=== PATIENT | male | born 1955 | race Caucasian/White ===

== ENCOUNTER 2024-10-05 06:13 | Day surgery (SDC) | payer MEDICARE, SELFPAY ==
[2024-10-05] VITALS (19 sets, daily range): BP systolic 142–186; BP diastolic 43–60; PULSE 40–53; RESP 11–24; TEMP 35.9–36.6; O2SAT 93–98; BMI 32.5
--- NOTE | 2024-10-05 06:15 | DI.NM_ITS ---
Exam(s) NM SENTNODE INJ AND SCAN EXAM: NM SENTNODE INJ AND SCAN CLINICAL HISTORY: Hannah Cell Right Thigh,lymph node bx,hannah cell ca,c4A.p. TECHNIQUE: Injected Dose: 1 mCi Tc-99m filtered sulfur colloid Images: 35 minutes COMPARISON: No exams were available for comparison FINDINGS: There is intense uptake seen at the injection site. There are foci of increased radiotracer uptake i n the right inguinal region. A skin surface marker was placed at the site of the lymph known labeled Node 1. IMPRESSION: 1. Lester node uptake in the groin. DATA REPOSITORY:
[2024-10-05] MEDS: Normal Saline Flush 10 ML SYR IV (06:51)
--- NOTE | 2024-10-05 06:53 | W.ANESPRE ---
General Info Date of Service Date Performed: 10/05/24 Height: 5 ft 11 in Weight: 106 kg Body Mass Index (BMI): 32.5 Surgical Procedure: Operation Date: 10/05/24 12:40 Proposed Procedure Side Surgeon p Sentinal Node Biopsy Right Sukhdev Pappas MD s Thigh Brandon Cell Wide Local Excision Right Sukhdev Pappas MD Meds Allergies and Home Medications Allergies Allergy/AdvReac Type Severity Reaction Status Date / Time amoxicillin (From Augmentin) Allergy Skin Rash Verified 10/05/24 06:38 bee venom protein (honey bee) Allergy Anaphylaxis Verified 10/05/24 06:38 sulfamethoxazole (From Allergy Hives Verified 10/05/24 06:38 Bactrim) trimethoprim (From Bactrim) Allergy Hives Verified 10/05/24 06:38 ciprofloxacin AdvReac Skin Rash Verified 10/05/24 06:38 clavulanic acid (From AdvReac Hives Verified 10/05/24 06:38 Augmentin) Home Medication ?Medication ?Instructions ?Recorded acetaminophen 500 mg tablet 500 mg PO Q6H 10/04/24 albuterol sulfate 90 mcg/actuation 2 puff inhalation Q6H PRN 10/04/24 aerosol inhaler amlodipine 5 mg tablet 5 mg PO DAILY 10/04/24 aspirin 81 mg tablet,delayed 81 mg PO DAILY 10/04/24 release carvedilol 3.125 mg tablet 3.125 mg PO BID 10/04/24 cholecalciferol (vitamin D3) 50 50 mcg PO DAILY 10/04/24 mcg (2,000 unit) capsule epinephrine 0.3 mg/0.3 mL 0.3 mg IM ONCE PRN 10/04/24 injection, auto-injector (EpiPen) ezetimibe 10 mg tablet 10 mg PO DAILY 10/04/24 furosemide 20 mg tablet 20 mg PO DAILY 10/04/24 hydroxychloroquine 200 mg tablet 200 mg PO DAILY 10/04/24 losartan 100 mg tablet 100 mg PO DAILY 10/04/24 metformin 500 mg tablet 500 mg PO DAILY 10/04/24 metoprolol succinate 25 mg 25 mg PO DAILY 10/04/24 tablet,extended release 24 hr pantoprazole 40 mg tablet,delayed 40 mg PO DAILY 10/04/24 release (Protonix) rosuvastatin 40 mg tablet (Crestor) 40 mg PO DAILY 10/04/24 triamcinolone acetonide 0.1 % 1 applic topical BID 10/04/24 topical cream prednisone 5 mg tablet mg 10/05/24 Current Visit Medications: Current Medications Generic Name Dose Route Start Last Admin Trade Name Nixon PRN Reason Stop Dose Admin Ringer's Solution 1,000 mls @ 80 mls/hr 10/05/24 06:00 IV 10/05/24 23:59 INFUSION JAEL IV Miscellaneous Supplies 1 each 10/05/24 06:00 Iv Access IV 10/05/24 23:59 DIRECTED JAEL Sodium Chloride 0 ml 10/05/24 06:00 10/05/24 06:51 Normal Saline Flush 10 Ml Syr IV 10/05/24 23:59 10 ml PRN PRN Administration Sodium Chloride 0 ml 10/05/24 06:00 Normal Saline 10 Ml Vial IJ 10/05/24 23:59 DIRECTED PRN Sterile Water 0 ml 10/05/24 06:00 Water,Injection,Sterile 10 Ml Vial IJ 10/05/24 23:59 DIRECTED PRN PFSH Medical History Medical History EVARISTO (obstructive sleep apnea) Amyloidosis Dysphagia Cerebral hemorrhage Microhemorrhage on MRI done for memory loss Chronic prostatitis SI (sacroiliac) joint dysfunction Testosterone deficiency Rotator cuff tear Venous insufficiency Osteoarthritis Hx of myocardial infarction per denies CHF (congestive heart failure) Diabetes Meniscal injury GERD (gastroesophageal reflux disease) Hypogonadism in male Obesity Hyperlipidemia Hypertension PMR (polymyalgia rheumatica) Bladder cancer Surgical History Surgical History H/O nasal septoplasty turbinate reduction 08/2024 Hx of colectomy Hx of cardiac catheterization Hx of CABG Hx of right inguinal hernia repair FH: total knee replacement (~2015) S/P AVR (~2020) 08/2020 [facility] [place] Tobacco Smoking/Tobacco Use Status: Former Tobacco Use Passive smoking exposure: No Alcohol Alcohol Intake: current Alcohol intake frequency: holidays/special occasions only Substance Use Substance use: Never Substance use type: does not use Vital Signs and Lab Results Vital Signs Most Recent Vital Signs in EMR: Most Recent Vital Signs Temp Pulse Resp BP Pulse Ox 36.4 C L 44 L 18 142/55 H 98 10/05/24 06:20 10/05/24 06:20 10/05/24 06:20 10/05/24 06:20 10/05/24 06:20 Lab Results Blood Type / Crossmatch: No Data to Display Complete Blood Count: No Data to Display Complete Metabolic Panel: No Data to Display Liver Function Panel: No Data to Display Coagulation Panel: No Data to Display Cardiac Panel: No Data to Display Arterial Blood Gas: No Data to Display Venous Blood Gas: No Data to Display Pancreas Panel: No Data to Display Thyroid Panel: No Data to Display Infectious Disease: No Data to Display Blood Cultures: No Data to Display Toxicology Panel: No Data to Display Anesthesia Assessment and Plan Anesthesia History Personal History: No History of Anesthesia Complications Family History: No Family History of Anesthesia Complications Exercise Tolerance Exercise Tolerance: Metabolic Equivalents>4 Cardiac & Pulmonary Exam Cardiac Exam: Normal S1/S2 Heart Sounds and Heart Murmur Present Pulmonary Exam: Clear Bilateral Breath Sounds Implantable Cardiac Device Does patient have a Pacemaker or an ICD?: No Airway Exam Known Difficult Airway: No Mallampati Class: 3 Mouth Opening: Normal (> 3cm) Thyromental Distance: Less than 3 cm Neck Range of Motion: Limited ROM Neck Circumference: Normal Teeth Condition: Normal Dentition ASA Classification ASA Score: ASA 3 Emergency Case?: No NPO Status NPO Status: NPO Clears >2 hours, Solids >8 hours Anesthesia Plan Resuscitation Status: Full Code Anesthesia Technique: General Anesthesia Airway Planned: LMA Monitors Used: Standard Monitors Preoperative Comments:: 68 yo male for thigh excision. Sig PMHx: HTN (amlodipine, carvedilol, metoprolol), CAD s/p AVR/CABG 2020, EVARISTO, GERD (well controlled), DM2 (ezetimibe, metformin), lateral fem neuropathy, PMR (prednisone 5 mg daily) ECHO: LVEF 81%, no WMA. bioprosthetic valve without stenosis and gradient of 22 mmhg. mitral calcification without stenosis. Previous Anes: - [facility] [place]/septoplasty, LMA 5, fent/prop, no issues. - [facility] [place]/CABG, mac 4 grade 1, no issues. Has been doing well since his CABG, has fair exercise tolerate.
[2024-10-05] MEDS: Lactated Ringers 1,000 ML 80 ML IV (10:51)
--- NOTE | 2024-10-05 11:48 | W.SURGCON ---
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 NCCN guidelines recommend sentinel lymph node biopsy be performed at the same time as a re-excision with larger (1-2 cm) margins. Lab work as well as extent of disease imaging (PET) has been ordered for him already. That will be done in the next couple of weeks at [facility] [place]. He will get an outpatient radiation oncology referral. Overall plan: Radiotracer injection for lymphoscintigraphy and lymph node mapping Re? excision with large margins and with sentinel node biopsy History of Present Illness Narrative: Romero is a 68-year-old man who had a large Hannah cell tumor removed from his right thigh a couple weeks ago. Because of the diagnosis, he needs re? excision, with larger margins and a sentinel lymph node biopsy. His prior excision site is healing up very nicely. PFSH All Active Problems (Updated 10/05/24 @ 11:49 by Sukhdev Pappas MD) Hannah cell carcinoma (Acute) Medical History (Updated 10/05/24 @ 11:49 by Sukhdev Pappas MD) EVARISTO (obstructive sleep apnea) Amyloidosis Dysphagia Cerebral hemorrhage Microhemorrhage on MRI done for memory loss Chronic prostatitis SI (sacroiliac) joint dysfunction Testosterone deficiency Rotator cuff tear Venous insufficiency Osteoarthritis Hx of myocardial infarction per denies CHF (congestive heart failure) Diabetes Meniscal injury GERD (gastroesophageal reflux disease) Hypogonadism in male Obesity Hyperlipidemia Hypertension PMR (polymyalgia rheumatica) Bladder cancer Surgical History H/O nasal septoplasty turbinate reduction 08/2024 Hx of colectomy Hx of cardiac catheterization Hx of CABG Hx of right inguinal hernia repair FH: total knee replacement (~2015) S/P AVR (~2020) 08/2020 [facility] [place] Social History Smoking/Tobacco Use Status: Former Tobacco Use Quit Date: 07/05/99 Smoking risk assessment performed?: Yes Alcohol Intake: current Alcohol Intake frequency: holidays/special occasions only Drug use: Never Substance use type: does not use Housing: house Additional Social history: [employer] Exam Narrative Exam Narrative: Gen: Non-toxic, comfortable and interactive Neuro: Alert and oriented x3 Psych: Good mood and affect. Good insight and understanding into condition. Chest: Non-labored breathing, no wheezing, no visible shortness of breath. Heart: Regular Right thigh: Nicely?healing surgical incision site. Sutures are still intact Results Last Vital Signs Temp 97.5 F L 10/05/24 06:20 Pulse 44 L 10/05/24 06:20 Resp 18 10/05/24 06:20 BP 142/55 H 10/05/24 06:20 Pulse Ox 98 10/05/24 06:20
--- NOTE | 2024-10-05 11:57 | W.PM.DSUDISC ---
Date of service: 10/05/24 Discharge Plan Disposition Patient Disposition: Home Condition: Good Discharge Details Attending Provider: Sukhdev Pappas Primary Care Provider: Mika Bianchi Home Meds and New Rx's Prescriptions: No Action furosemide 20 mg tablet 20 mg PO DAILY metformin 500 mg tablet 500 mg PO DAILY pantoprazole [Protonix] 40 mg tablet,delayed release (DR/EC) 40 mg PO DAILY amlodipine 5 mg tablet 5 mg PO DAILY Rx Instructions: take 2 tabs once a day hydroxychloroquine 200 mg tablet 200 mg PO DAILY Patient Comments: not taking anymore ezetimibe 10 mg tablet 10 mg PO DAILY carvedilol 3.125 mg tablet 3.125 mg PO BID Rx Instructions: must administer with a meal/food triamcinolone acetonide 0.1 % cream 1 applic topical BID rosuvastatin [Crestor] 40 mg tablet 40 mg PO DAILY albuterol sulfate 90 mcg/actuation HFA aerosol inhaler 2 puff inhalation Q6H PRN losartan 100 mg tablet 100 mg PO DAILY aspirin 81 mg tablet,delayed release (DR/EC) 81 mg PO DAILY cholecalciferol (vitamin D3) 50 mcg (2,000 unit) capsule 50 mcg PO DAILY acetaminophen 500 mg tablet 500 mg PO Q6H epinephrine [EpiPen] 0.3 mg/0.3 mL auto-injector 0.3 mg IM ONCE PRN Rx Instructions: as a single dose; may repeat once metoprolol succinate 25 mg tablet extended release 24 hr 25 mg PO DAILY prednisone 5 mg tablet Discharge Instructions Additional Instructions: FINDINGS: Everything went well. The lymph node was found without any problem. ACTIVITY: As tolerated. Nothing strenuous for a couple of weeks. DIET: As tolerated. MEDICATIONS: Take and resume any and all of your usual home medications. INCISIONS: The groin incision does not need to be covered. There is glue on it. It can be wet in a shower. No tub bathing for at least a week. The leg incision should be covered for the next 3 days. Change the dressing once a day after you shower. Put bacitracin over top of that as well. After 3 days, it does not need to be covered anymore. You can use an Duong bandage to keep the dressing intact. FOLLOW-up: Schedule follow-up visit in the surgery office to be seen in a couple of weeks and go over everything. Stand Alone Forms: Anesthesia Discharge Inst., Jamey Robledo ([facility]) Referrals: Sukhdev Pappas MD [ [facility] STAFF PHYSICIAN] - Activity:: Activity as Tolerated Diet:: As Tolerated Discharge Orders Discharge Orders: Discharge Order (Routine); Ordered 10/05/24 Ordered By: Sukhdev Pappas DS: Diagnosis Discharge Diagnosis (1) [place] cell carcinoma: Status: Acute
--- NOTE | 2024-10-05 12:38 | LYM_PTH ---
PATIENT: Romero Christian LOC: [facility] U#:[id number] AGE/SX: 68/M ROOM: RE10/05/[address]: Sukhdev Pappas : 1955 BED: DIS: 10/05/2024 SPEC #: [id number] RECD: 10/06/24 12:55 STATUS: JASPREET RE #: [id number] AASHISH: 10/05/24 12:[address]: Sukhdev Pappas DEPT: Surgical Specimen RECD BY: Beth Ortiz ENTERED: 10/06/24 12:58 SP TYPE: LYM OTHR DR: Mika Bianchi Tissues: 1 - SKIN EXCISION WIDE 2 - LYMPH NODE RESECTION 3 - LYMPH NODE RESECTION 4 - LYMPH NODE RESECTION 5 - SKIN BIOPSY(SHAVE/PUNCH) Procedures: GROSS AND MICRO LEVEL 5 GROSS AND MICRO LEVEL 3 SKIN LEVEL 4 Comments: [id number] (SPECIMENS RADIOACTIVE)
[2024-10-05] MEDS: Bupivacaine 0.25% Pres-Free 30 ML VIAL (13:26)
[2024-10-05] MEDS: Bacitracin 30 GM TUBE (13:26)
--- NOTE | 2024-10-05 13:36 | ROE_ITS ---
Operative Note Operative Note Refer to Anesthesia Record Procedure Description: Procedures performed: 1. Radical re-excision of thigh Hannah Cell Carcinoma (Less than 5cm) 2. Right inguinal lymph node biopsies 3. Excisional biopsy of R groin cutaneous skin lesion (~2mm) Location: Patient's right thigh Indication: Biopsy-proven Merckel Cell Carcinoma - staging and 1+cm margins required. Specimens: 1) Right Thigh Re-Excision with 1-2cm margins Merckel Cell CA. Stitch stephen 12:00 2) Right Groin Sentinal Lymph node 3) Right Groin Sentinal Lymph node #2 4) Right Groin lymphatic tissue packet around the sentinal nodes 5) Right Groin cutaneous pigmented nevus Blood loss: Minimal Procedure in detail: The patient gave written consent. He was taken to the operating room. He was laid supine on the operating room table. Anesthesia was administered. We prepped and draped the right leg and the right groin in sterile fashion. The radiotracer had been injected 3-4 hours prior. Lymphoscintigraphy was performed and we had good lymph node mapping. 2 nodes were visible. We performed a timeout and when we were all in agreement we started the procedure. Local anesthetic was injected. I measured generous, 1+ cm margins from all aspects of the prior excisional b iopsy site. I ensured that this border was a large ellipse for closure purposes. With a #15 blade I made a large elliptical incision through the skin. Electrocautery and the LigaSure was used to divide all of the subcutaneous fat and maintain hemostasis in a circumferential, elliptical fashion. The previous excision site was completely encompassed within this volume of tissue. I took the dissection all the way down in the subcutaneous fat until I met the first fascial layers of the thigh musculature. I then completely amputated the specimen off the deep margin with the LigaSure. Hemostasis was excellent. I was able to approximate the wound edges for a primary closure without undue amounts of tension using Prolene sutures in interrupted mattress fashion. Next, I turned my attention to the right groin. Using the probe, I was able to identify the cutaneous site directly over top of the highest count. At this time I noticed a small 2-3 mm darkly?pigmented nevus with very clear and distinct borders. While I would not otherwise notice it, it was directly over top of the lymph node location which I felt was unusually odd and an unusual coincidence. I decided to excise it as its own separate excisional biopsy in case this is a satellite lesion in-transit. A small ellipse was made to completely encompass the lesion and I excised it and sent it to pathology as a separate specimen. I incorporated this incision site into my larger incision for the lymph node biopsy. A #15 blade was used to cut down through the skin. Electrocautery and LigaSure dissection was performed and I followed the probe all the way down to the obvious lymph node. The probe counter reliably identified this packet of tissue as the sentinel node and I excised it from the groin. Consistent with what we had seen on lymphoscintigraphy, after removing this lymph node and confirming on the back table it was indeed the sentinel node with a very high count on the probe, the groin was reexamined with the probe and there was another lymph node still within. A second lymph node packet was excised and removed in similar fashion and after this, there was no more counting by the probe in the groin. The lymphatic tissue surrounding both lymph nodes had been excised in the process and this was sent as a separate specimen. I rechecked the groin for hemostasis and it was excellent. I closed the skin with running Monocryl. Dermabond was placed on top. The thigh wound was dressed with bacitracin, an ABD pad and an Duong wrap. The patient tolerated the procedure well. All the counts were correct at the end of procedure. He was taken to the PACU in hemodynamically stable condition. Date of Procedure: 10/05/24
[2024-10-05] MEDS: ACETAMINOPHEN 1,000 MG/100 ML BAG 400 MG IVPB (13:49)
--- NOTE | 2024-10-05 13:51 | W.ANESPOSTOP ---
Postoperative Evaluation Date, Time and Location Date Performed: 10/05/24 Time Performed: 13:51 Patient Location: PACU Vital Signs Most Recent Imported Vital Signs: Most Recent Vital Signs Temp Pulse Resp BP Pulse Ox 36.4 C L 44 L 18 142/55 H 98 10/05/24 06:20 10/05/24 06:20 10/05/24 06:20 10/05/24 06:20 10/05/24 06:20 Pain Score Most Recent Pain Score: Most Recent Pain Score Pain Level 0 10/05/24 06:20 Assessment Mental Status: Arousable with meaningful communication Airway and Respiratory Function: Patent airway with normal (patient baseline) respiratory exam Cardiovascular Function: Hemodynamically Stable (VS reviewed. ) Hydration Status: Adequately Hydrated Nausea & Vomiting: No Nausea or Vomiting Pain: Pain is tolerable per patient Peripheral Nerve Block: Patient did not receive a nerve block
== END 2024-10-05 15:16 | disposition home or self-care (01) ==
PROVIDERS: PCP Family Medicine; Visit Provider Student in an Organized Health Care Education/Training Program
PROC: (CPT 11606; principal; 2024-10-05 12:30)
PROC: (CPT 11606; 2024-10-05 12:30)
DX: C4A.71 Merkel cell carcinoma of right lower limb, including hip (principal); I11.0 Hypertensive heart disease with heart failure; E11.9 Type 2 diabetes mellitus without complications; I50.9 Heart failure, unspecified; E78.5 Hyperlipidemia, unspecified; M35.3 Polymyalgia rheumatica; Z79.84 Long term (current) use of oral hypoglycemic drugs
CPT/HCPCS: 11606; 11400; 38531; 78195; 88304; 88305; 88307; J0131; J0665; J2003; J2405; J2704; J3010

== ENCOUNTER → 2024-10-19 11:34 | Outpatient (BNVA) | payer MEDICARE, SELFPAY | PROVIDERS: Visit Provider Student in an Organized Health Care Education/Training Program | DX: Z48.817 Encounter for surgical aftercare following surgery on the skin and subcutaneous tissue (principal); C4A.9 Merkel cell carcinoma, unspecified; T81.89XA Other complications of procedures, not elsewhere classified, initial encounter; I89.8 Other specified noninfective disorders of lymphatic vessels and lymph nodes ==

== ENCOUNTER → 2024-10-31 13:37 | Outpatient (BNVA) | payer MEDICARE, SELFPAY | PROVIDERS: Visit Provider Surgery | DX: I89.8 Other specified noninfective disorders of lymphatic vessels and lymph nodes (principal); T88.8XXA Other specified complications of surgical and medical care, not elsewhere classified, initial encounter | CPT/HCPCS: 10160 ==

== ENCOUNTER 2024-10-31 14:49 | Outpatient (REF) | payer MEDICARE, SELFPAY | END 2024-10-31 14:50 | disposition home or self-care (01) | LOC: LBN 14:49 | PROVIDERS: Referring Provider Surgery; Visit Provider Surgery | DX: T81.89XA Other complications of procedures, not elsewhere classified, initial encounter (principal); I89.8 Other specified noninfective disorders of lymphatic vessels and lymph nodes | CPT/HCPCS: 87077; 87070; 87075; 87186; 87205 ==

== ENCOUNTER → 2024-11-02 14:22 | Outpatient (BNVA) | payer MEDICARE, SELFPAY | PROVIDERS: Visit Provider Student in an Organized Health Care Education/Training Program | DX: Z48.817 Encounter for surgical aftercare following surgery on the skin and subcutaneous tissue (principal) ==

== ENCOUNTER 2024-11-05 13:14 | Emergency (ER) | payer MEDICARE, SELFPAY ==
--- NOTE | 2024-11-05 13:21 | ED.GENADUL_ITS ---
Discharge Plan Disposition Patient Disposition: Home Discharge Details Clinical Impression: Abscess of right thigh Primary Care Provider: None,None ED Provider: Mika Dominguez [place] Meds and New Rx's Prescriptions: Continued clindamycin HCl 300 mg capsule 300 mg PO TID Qty: 30 0RF furosemide 20 mg tablet 20 mg PO DAILY metformin 500 mg tablet 500 mg PO DAILY pantoprazole [Protonix] 40 mg tablet,delayed release (DR/EC) 40 mg PO DAILY amlodipine 5 mg tablet 5 mg PO DAILY Rx Instructions: take 2 tabs once a day ezetimibe 10 mg tablet 10 mg PO DAILY carvedilol 3.125 mg tablet 3.125 mg PO BID Rx Instructions: must administer with a meal/food triamcinolone acetonide 0.1 % cream 1 applic topical BID rosuvastatin [Crestor] 40 mg tablet 40 mg PO DAILY albuterol sulfate 90 mcg/actuation HFA aerosol inhaler 2 puff inhalation Q6H PRN losartan 100 mg tablet 100 mg PO DAILY aspirin 81 mg tablet,delayed release (DR/EC) 81 mg PO DAILY cholecalciferol (vitamin D3) 50 mcg (2,000 unit) capsule 50 mcg PO DAILY acetaminophen 500 mg tablet 500 mg PO Q6H epinephrine [EpiPen] 0.3 mg/0.3 mL auto-injector 0.3 mg IM ONCE PRN Rx Instructions: as a single dose; may repeat once metoprolol succinate 25 mg tablet extended release 24 hr 25 mg PO DAILY prednisone 5 mg tablet Discharge Instructions Instructions: Abscess Incision and Drainage Additional Instructions: You are seen in the emergency department for your abscess. Please take these antibiotics as directed. As we discussed, please return to the emergency department if you develop fevers worsening pain or cannot take your antibiotics as result of nausea or vomiting. Please follow-up with general surgery team. For your pain please take medications as follows: 1. Take acetaminophen (Tylenol), 1,000 mg (two 500 mg tabs) every 6 hours HPI General Date/Time Provider Initiated Documentation: 11/05/24 13:21 . HPI Narrative: MDM These are quite well-appearing normothermic and not tachycardic 68-year-old male with right proximal thigh abscess for which surgery completed bedside incision and drainage given prior outpatient follow-up. Please see surgery note for details. I considered sepsis however patient was not hypotensive nor tachycardic so I did not order broad-spectrum antibiotics no acute blood cultures or lactate. No pain out of proportion to suggest necrotizing soft tissue infection. My suspicion is low for DVT so I do not feel the patient requires a duplex study. Given absence of trauma I do not feel the patient requires plain films. Patient understood return indications including streaking signs of infection fevers or inability tolerate p.o. antibiotics. He will follow-up with general surgery clinic. HPI This is a 68-year-old male on outpatient clindamycin in the setting of right thigh abscess. 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 Patient has been managed in the clinic in the past month by general surgery team. He was started on antibiotics last week and has been packing his wound. Denies any fevers nausea vomiting. He has had some foul-smelling drainage from his right distal thigh wound. Dr. Pappas called the patient and requested that he come to the emergency department. Exam General: Well-appearing in no acute distress speaking in complete sentences. Head: Normocephalic, atraumatic. Eye: Extraocular eye movements intact. No conjunctival injection. No scleral icterus. Ear, nose, mouth, throat: Grossly normal inspection. Normal voice, handling secretions normally. Neck: Trachea midline. Cardiovascular: Well-perfused distal extremities. Respiratory: Nonlabored respiration. Gastrointestinal: Nondistended abdomen. Musculoskeletal: No edema. Moving all 4 extremities spontaneously. Skin: On the right proximal thigh there are 2 wounds. The proximal wound has packing in place. The distal wound to likely communicates with the more proximal wound and is fluctuant and tender. Consistent with abscess. No streaking signs of erythema.His right groin incision is quite tender. Neurologic: Alert and appropriate, no apparent acute deficits. Psychiatric: Mood and manner are appropriate. Grooming and personal hygiene are appropriate. Related Data Home Medications ?Medication ?Instructions ?Recorded ?Confirmed acetaminophen 500 mg tablet 500 mg PO Q6H 10/04/24 11/03/24 albuterol sulfate 90 mcg/actuation 2 puff inhalation Q6H PRN 10/04/24 11/03/24 aerosol inhaler amlodipine 5 mg tablet 5 mg PO DAILY 10/04/24 11/03/24 aspirin 81 mg tablet,delayed 81 mg PO DAILY 10/04/24 11/03/24 release carvedilol 3.125 mg tablet 3.125 mg PO BID 10/04/24 11/03/24 cholecalciferol (vitamin D3) 50 50 mcg PO DAILY 10/04/24 11/03/24 mcg (2,000 unit) capsule epinephrine 0.3 mg/0.3 mL 0.3 mg IM ONCE PRN 10/04/24 11/03/24 injection, auto-injector (EpiPen) ezetimibe 10 mg tablet 10 mg PO DAILY 10/04/24 11/03/24 furosemide 20 mg tablet 20 mg PO DAILY 10/04/24 11/03/24 losartan 100 mg tablet 100 mg PO DAILY 10/04/24 11/03/24 metformin 500 mg tablet 500 mg PO DAILY 10/04/24 11/03/24 metoprolol succinate 25 mg 25 mg PO DAILY 10/04/24 11/03/24 tablet,extended release 24 hr pantoprazole 40 mg tablet,delayed 40 mg PO DAILY 10/04/24 11/03/24 release (Protonix) rosuvastatin 40 mg tablet (Crestor) 40 mg PO DAILY 10/04/24 11/03/24 triamcinolone acetonide 0.1 % 1 applic topical BID 10/04/24 11/03/24 topical cream prednisone 5 mg tablet mg 10/05/24 11/03/24 clindamycin HCl 300 mg capsule 300 mg PO TID #30 caps 11/03/24 11/03/24 Previous Rx's ?Medication ?Instructions ?Recorded clindamycin HCl 300 mg capsule 300 mg PO TID #30 caps 11/03/24 Allergies Allergy/AdvReac Type Severity Reaction Status Date / Time amoxicillin (From Augmentin) Allergy Skin Rash Verified 10/31/24 14:07 bee venom protein (honey bee) Allergy Anaphylaxis Verified 10/31/24 14:07 sulfamethoxazole (From Allergy Hives Verified 10/31/24 14:07 Bactrim) trimethoprim (From Bactrim) Allergy Hives Verified 10/31/24 14:07 ciprofloxacin AdvReac Skin Rash Verified 10/31/24 14:07 clavulanic acid (From AdvReac Hives Verified 10/31/24 14:07 Augmentin) Medical Decision Making Quality:SDOH Health Related Social Needs: No Data to Display PFSH All Active Problems (Updated 11/05/24 @ 14:27 by Mika Dominguez MD) Abscess of right thigh (Acute) 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 (Acute) Hannah cell carcinoma (Acute) Medical History (Updated 11/05/24 @ 14:27 by Mika Dominguez MD) EVARISTO (obstructive sleep apnea) Amyloidosis Dysphagia Cerebral hemorrhage Microhemorrhage on MRI done for memory loss Chronic prostatitis SI (sacroiliac) joint dysfunction Testosterone deficiency Rotator cuff tear Venous insufficiency Osteoarthritis Hx of myocardial infarction per denies CHF (congestive heart failure) Diabetes Meniscal injury GERD (gastroesophageal reflux disease) Hypogonadism in male Obesity Hyperlipidemia Hypertension PMR (polymyalgia rheumatica) Bladder cancer Surgical History (Updated 10/06/24 @ 11:13 by Mary Baker) Hx of lymph node biopsy (~10/2024) Re excision thigh Hannah Cell CA, R inguinal lymph nodes, Cutaneous skin lesion groin H/O nasal septoplasty turbinate reduction 08/2024 Hx of colectomy Hx of cardiac catheterization Hx of CABG Hx of right inguinal hernia repair FH: total knee replacement (~2015) S/P [place] (~2020[place] [facility] [place] Smoking/Tobacco Use Status: Former Tobacco Use Quit Date: 07/05/99 Smoking risk assessment performed?: Yes Alcohol Intake: current Alcohol Intake frequency: holidays/special occasions only Alcohol type: beer Drug use: Never Substance use type: does not use Housing: house Additional Social history: [employer]
[2024-11-05 13:27] VITALS: BP 153/72; PULSE 48; RESP 18; TEMP 37.1; O2SAT 95
--- NOTE | 2024-11-05 15:27 | W.SURGCON ---
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 I think the groin lymphocele is getting corked by the packing which is not allowing it adequately drained which is the whole point in hopes of it granulating and scarring in. I packed a [place] drain into that cavity and sutured it in place to facilitate easier and continued drainage. This site actually does not really have an ongoing infection problem clinically, despite scant/rare strep growth from the cultures. For the thigh situation, the superior part of the surgical site remains adequately controlled and drained with the current packing. Using an 11 blade I opened up the inferior aspect where pus is already spontaneously draining and packed this with quarter inch packing. He tolerated all of this well and his and him agreed at the bedside that this is adequate ongoing management. He is also on clindamycin currently which is one of the few antibiotics he can tolerate. I think the combination of antibiotics as well as adequate source control and drainage of the abscess(surgical site) cavity should be adequate management. Medical and then a couple of days and see how things are progressing. If he is not noticing drastic improvement, then we we will need to consider wound exploration, hopeful lymphatic ligation with ICG imaging and probable wound VAC placement. History of Present Illness Narrative: Romero is well-known to me. He called the paging service today because he started having pus coming out of the LOWER aspect of his thigh wound. He also describes some chills. I asked him to come the emergency department for evaluation with me. PFSH All Active Problems (Updated 11/05/24 @ 14:27 by Mika Dominguez MD) Abscess of right thigh (Acute) 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 (Acute) [place] cell carcinoma (Acute) Medical History (Updated 11/05/24 @ 14:27 by Mika Dominguez MD) EVARISTO (obstructive sleep apnea) Amyloidosis Dysphagia Cerebral hemorrhage Microhemorrhage on MRI done for memory loss Chronic prostatitis SI (sacroiliac) joint dysfunction Testosterone deficiency Rotator cuff tear Venous insufficiency Osteoarthritis Hx of myocardial infarction per denies CHF (congestive heart failure) Diabetes Meniscal injury GERD (gastroesophageal reflux disease) Hypogonadism in male Obesity Hyperlipidemia Hypertension PMR (polymyalgia rheumatica) Bladder cancer Surgical History (Updated 10/06/24 @ 11:13 by Mary Baker) Hx of lymph node biopsy (~10/2024) Re excision thigh [place] Cell CA, R inguinal lymph nodes, Cutaneous skin lesion groin H/O nasal septoplasty turbinate reduction 08/2024 Hx of colectomy Hx of cardiac catheterization Hx of CABG Hx of right inguinal hernia repair FH: total knee replacement (~2015) S/P AVR (~2020) 08/2020 [facility] [place] Social History Smoking/Tobacco Use Status: Former Tobacco Use Quit Date: 07/05/99 Smoking risk assessment performed?: Yes Alcohol Intake: current Alcohol Intake frequency: holidays/special occasions only Alcohol type: beer Drug use: Never Substance use type: does not use Housing: house Additional [facility] Exam Narrative Exam Narrative: General: He is not toxic, he is interactive and overall comfortable. Right thigh: There is indeed pus coming out from the inferior aspect of the lower thigh surgical site. The superior aspect remains with quarter inch packing with scant purulent output. Abdomen: In the right lower quadrant, I removed the packing and immediately 100+ cc of serous lymphatic drainage was spontaneously draining. Results Last Vital Signs Temp 98.7 F 11/05/24 13:27 Pulse 48 L 11/05/24 13:27 Resp 18 11/05/24 13:27 BP 153/72 H 11/05/24 13:27 Pulse Ox 95 11/05/24 13:27
== END 2024-11-05 14:32 | disposition home or self-care (01) ==
PROVIDERS: Emergency Provider Emergency Medicine
DX: L02.415 Cutaneous abscess of right lower limb
CPT/HCPCS: 10061; 99282; 99284; 99283; J2004

== ENCOUNTER → 2024-11-09 09:13 | Outpatient (BNVA) | payer MEDICARE, SELFPAY | PROVIDERS: Visit Provider Student in an Organized Health Care Education/Training Program | DX: Z48.817 Encounter for surgical aftercare following surgery on the skin and subcutaneous tissue (principal) ==

== ENCOUNTER 2024-11-16 06:04 | Day surgery (SDC) | payer MEDICARE, SELFPAY ==
[2024-11-16] VITALS (10 sets, daily range): BP systolic 129–151; BP diastolic 46–64; PULSE 43–55; RESP 14–24; TEMP 35.9–36.5; O2SAT 95–99; BMI 33.5
[2024-11-16] MEDS: Lactated Ringers 1,000 ML 75 ML IV (06:52)
--- NOTE | 2024-11-16 08:15 | W.ANESPRE ---
General Info Date of Service Date Performed: 11/16/24 Height: 5 ft 11 in Weight: 109 kg Body Mass Index (BMI): 33.5 Surgical Procedure: Operation Date: 11/16/24 07:40 Proposed Procedure Side Surgeon p Groin Exploration w/ Lymphatic Duct Ligation Right Sukhdev Pappas MD Meds Allergies and Home Medications Allergies Allergy/AdvReac Type Severity Reaction Status Date / Time amoxicillin (From Augmentin) Allergy Skin Rash Verified 11/16/24 06:25 bee venom protein (honey bee) Allergy Anaphylaxis Verified 11/16/24 06:25 sulfamethoxazole (From Allergy Hives Verified 11/16/24 06:25 Bactrim) trimethoprim (From Bactrim) Allergy Hives Verified 11/16/24 06:25 ciprofloxacin AdvReac Skin Rash Verified 11/16/24 06:25 clavulanic acid (From AdvReac Hives Verified 11/16/24 06:25 Augmentin) Home Medication ?Medication ?Instructions ?Recorded acetaminophen 500 mg tablet 500 mg PO Q6H 10/04/24 albuterol sulfate 90 mcg/actuation 2 puff inhalation Q6H PRN 10/04/24 aerosol inhaler amlodipine 5 mg tablet 5 mg PO DAILY 10/04/24 aspirin 81 mg tablet,delayed 81 mg PO DAILY 10/04/24 release carvedilol 3.125 mg tablet 3.125 mg PO BID 10/04/24 cholecalciferol (vitamin D3) 50 50 mcg PO DAILY 10/04/24 mcg (2,000 unit) capsule epinephrine 0.3 mg/0.3 mL 0.3 mg IM ONCE PRN 10/04/24 injection, auto-injector (EpiPen) ezetimibe 10 mg tablet 10 mg PO DAILY 10/04/24 furosemide 20 mg tablet 20 mg PO DAILY 10/04/24 losartan 100 mg tablet 100 mg PO DAILY 10/04/24 metformin 500 mg tablet 500 mg PO DAILY 10/04/24 metoprolol succinate 25 mg 25 mg PO DAILY 10/04/24 tablet,extended release 24 hr pantoprazole 40 mg tablet,delayed 40 mg PO DAILY 10/04/24 release (Protonix) rosuvastatin 40 mg tablet (Crestor) 40 mg PO DAILY 10/04/24 triamcinolone acetonide 0.1 % 1 applic topical BID 10/04/24 topical cream prednisone 5 mg tablet 5 mg PO DAILY 10/05/24 Current Visit Medications: Current Medications Generic Name Dose Route Start Last Admin Trade Name Freq PRN Reason Stop Dose Admin Ringer's Solution 1,000 mls @ 75 mls/hr 11/16/24 06:00 11/16/24 06:52 IV 11/16/24 23:59 75 mls/hr INFUSION JAEL Administration IV Miscellaneous Supplies 1 each 11/16/24 06:00 Iv Access IV 11/16/24 23:59 DIRECTED JAEL Indocyanine Green 5 mg 11/16/24 06:00 Indocyanine Green 25 Mg Vial IVP 11/16/24 23:59 DIRECTED JAEL Sodium Chloride 0 ml 11/16/24 06:00 Normal Saline Flush 10 Ml Syr IV 11/16/24 23:59 PRN PRN Sodium Chloride 0 ml 11/16/24 06:00 Normal Saline 10 Ml Vial IJ 11/16/24 23:59 DIRECTED PRN Sterile Water 0 ml 11/16/24 06:00 Water,Injection,Sterile 10 Ml Vial IJ 11/16/24 23:59 DIRECTED PRN PFSH Active Problems Active Problems: Problem Status Onset Code Abscess of right thigh Acute L02.415 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 Acute T81.89XA, I89.8 [place] cell carcinoma Acute C4A.9 Medical History Medical History EVARISTO (obstructive sleep apnea) Amyloidosis Dysphagia Cerebral hemorrhage Microhemorrhage on MRI done for memory loss Chronic prostatitis SI (sacroiliac) joint dysfunction Testosterone deficiency Rotator cuff tear Venous insufficiency Osteoarthritis Hx of myocardial infarction per denies CHF (congestive heart failure) Diabetes Meniscal injury GERD (gastroesophageal reflux disease) Hypogonadism in male Obesity Hyperlipidemia Hypertension PMR (polymyalgia rheumatica) Bladder cancer Surgical History Surgical History Hx of lymph node biopsy (~10/2024) Re excision thigh [place] Cell CA, R inguinal lymph nodes, Cutaneous skin lesion groin H/O nasal septoplasty turbinate reduction 08/2024 Hx of colectomy Hx of cardiac catheterization Hx of CABG triple Hx of right inguinal hernia repair FH: total knee replacement (~2015) S/P AVR (~2020) 08/2020 [facility] [place] Tobacco Smoking/Tobacco Use Status: Former Tobacco Use Passive smoking exposure: No Alcohol Alcohol Intake: current Alcohol intake frequency: holidays/special occasions only Alcohol type: beer Substance Use Substance use: Never Substance use type: does not use Vital Signs and Lab Results Vital Signs Most Recent Vital Signs in EMR: Most Recent Vital Signs Temp Pulse Resp BP Pulse Ox 36.5 C 45 L 16 150/62 H 98 11/16/24 06:33 11/16/24 06:33 11/16/24 06:33 11/16/24 06:33 11/16/24 06:33 Lab Results Blood Type / Crossmatch: No Data to Display Complete Blood Count: No Data to Display Complete Metabolic Panel: No Data to Display Liver Function Panel: No Data to Display Coagulation Panel: No Data to Display Cardiac Panel: No Data to Display Arterial Blood Gas: No Data to Display Venous Blood Gas: No Data to Display Pancreas Panel: No Data to Display Thyroid Panel: No Data to Display Infectious Disease: No Data to Display Blood Cultures: No Data to Display Toxicology Panel: No Data to Display Anesthesia Assessment and Plan Anesthesia History Personal History: No History of Anesthesia Complications Family History: No Family History of Anesthesia Complications Exercise Tolerance Exercise Tolerance: Metabolic Equivalents>4 Cardiac & Pulmonary Exam Cardiac Exam: Normal S1/S2 Heart Sounds and Heart Murmur Present Pulmonary Exam: Clear Bilateral Breath Sounds Implantable Cardiac Device Does patient have a Pacemaker or an ICD?: No Airway Exam Known Difficult Airway: No Mallampati Class: 3 Mouth Opening: Normal (> 3cm) Thyromental Distance: Less than 3 cm Neck Range of Motion: Limited ROM Neck Circumference: Normal Teeth Condition: Normal Dentition ASA Classification ASA Score: ASA 3 Emergency Case?: No NPO Status NPO Status: NPO Clears >2 hours, Solids >8 hours Anesthesia Plan Resuscitation Status: Full Code Anesthesia Technique: General Anesthesia Airway Planned: Natural Airway Monitors Used: Standard Monitors Preoperative Comments:: 68 yo male for groin exploration. Sig PMHx: HTN (amlodipine, carvedilol, metoprolol), CAD s/p AVR/CABG 2020, EVARISTO, GERD (well controlled), DM2 (ezetimibe, metformin), lateral fem neuropathy, PMR (prednisone 5 mg daily) ECHO: LVEF 81%, no WMA. bioprosthetic valve without stenosis and gradient of 22 mmhg. mitral calcification without stenosis. Previous Anes: - [facility]/septoplasty, LMA 5, fent/prop, no issues. - [facility] [place]/CABG, mac 4 grade 1, no issues. Has been doing well since his CABG, has fair exercise tolerance Reviewed labs in [facility] [place]. BGL 175 last check, moderately stable to his past history. No HGA1c noted. BUN elevated during that admission to (10/18/2024)
[2024-11-16] MEDS: Indocyanine green 25 MG VIAL 5 MG IVP (10:18)
[2024-11-16] MEDS: Bupivacaine 0.25% Pres-Free 30 ML VIAL (10:18)
--- NOTE | 2024-11-16 12:05 | W.PM.OP ---
Operative Note Operative Note Refer to Anesthesia Record Procedure Description: Procedures: 1. Right groin exploration 2. ICG lymphoscintigraphy of RLE 3. Lymphatic duct ligation Preoperative diagnosis: Lymphocele, Lymph Leak Postoperative diagnosis: Same Surgeon: Evon Pappas Assist: None Anesthesia: Yi Indication: 68 yo man with a lympocele and ongoing lymph leak since a sentinal LN biopsy a month ago for a large Hannah Cell CA Findings: ICG imaging showed 2 separate lymphatic leaks within the lymphocele cavity. These were oversewed/ligated with [id number] sutures. Following ligation, repeat ICG imaging confirmed no further leakage. Complications: None Estimated Blood Loss: Minimal Specimens removed: None Grafts or implants: No Procedure in detail: Written consent was obtained from the patient who was in agreement the risks the benefits and indications for the procedure. The patient was taken to the operating suite and anesthesia was administered. The right lower extremity was prepped and draped in sterile fashion. We performed a timeout and when we were all in agreement I started the procedure. Antibiotics were not indicated. I opened up the existing draining sinus from his right groin lymphocele using electrocautery. The lymphocele cavity was well?defined. I ensured hemostasis was excellent everywhere and explored the cavity visually. There was no obvious site of leakage. Next, I injected 1 cc of ICG diluted in injectable saline(2.5 mg per 1 cc) in the webspace between the 1st and 2nd digits of the right foot. We massaged the foot and then used an Esmarch roll from distal to the proximal thigh to facilitate propagation of the dye. Using the laparoscope on infrared settings, we carefully monitored the lymphocele bed. About 15 minutes after the injection had been given, the green dye was visualized leaking from 2 separate sites within the bed. Manipulation and pressure of the thigh distal to the lymphocele resulted in squirting from the leaking vessels which were then readily identified. The tissue was too?indurated to facilitate hemoclips. Using 3-0 Vicryl in [id number] fashion I sutured?ligated the leaking lymphatic docs in the 2 separate locations. I then re? injected ICG between the webspace and again, performed the maneuvers to milk the dye proximal to the groin. Faint, green dye was seen tracing along the lymphatics deep to the lymphocele cavity. No further leaking within the cavity was appreciated. We performed maneuvers of pressure and squeezing on the thigh which had previously provoked the leaks and these were unsuccessful in re? demonstrating an ongoing lymphatic leak. This essentially confirmed the success of our procedure and at this point I packed the wound. We used a single interrupted Prolene suture in mattress fashion to approximate the wound edges. Hemostasis was excellent and I placed an ABD pad over top. The patient tolerated the procedure well and was taken to the PACU in hemodynamically stable condition. Date of Procedure: 11/16/24
--- NOTE | 2024-11-16 12:05 | W.PM.DSUDISC ---
Date of service: 11/16/24 Discharge Plan Disposition Patient Disposition: Home Condition: Good Discharge Details Attending Provider: Sukhdev Pappas Primary Care Provider: None,None Home Meds and New Rx's Prescriptions: No Action furosemide 20 mg tablet 20 mg PO DAILY metformin 500 mg tablet 500 mg PO DAILY pantoprazole [Protonix] 40 mg tablet,delayed release (DR/EC) 40 mg PO DAILY amlodipine 5 mg tablet 5 mg PO DAILY Rx Instructions: take 2 tabs once a day ezetimibe 10 mg tablet 10 mg PO DAILY carvedilol 3.125 mg tablet 3.125 mg PO BID Rx Instructions: must administer with a meal/food triamcinolone acetonide 0.1 % cream 1 applic topical BID rosuvastatin [Crestor] 40 mg tablet 40 mg PO DAILY albuterol sulfate 90 mcg/actuation HFA aerosol inhaler 2 puff inhalation Q6H PRN losartan 100 mg tablet 100 mg PO DAILY aspirin 81 mg tablet,delayed release (DR/EC) 81 mg PO DAILY cholecalciferol (vitamin D3) 50 mcg (2,000 unit) capsule 50 mcg PO DAILY acetaminophen 500 mg tablet 500 mg PO Q6H epinephrine [EpiPen] 0.3 mg/0.3 mL auto-injector 0.3 mg IM ONCE PRN Rx Instructions: as a single dose; may repeat once metoprolol succinate 25 mg tablet extended release 24 hr 25 mg PO DAILY prednisone 5 mg tablet 5 mg PO DAILY Discharge Instructions Additional Instructions: FINDINGS: The leaking lymphatic duct was found and sutured closed. WOUND: Remove the packing in the wound on Wednesday morning. Place packing into the wound once a day thereafter until you cannot get packing in any longer. You can use an ABD pad in the groin if and as needed. LEG wound: You probably will not be able to continue packing this in the next couple of days. After you cannot get packing in, just put a Band-Aid on it until it is healed. Diet: Regular diet as tolerated Meds: Resume any and all of your regular home meds BATHING: You can continue the bathing as we have been doing. Just change the packing after you take a bath Activity: As tolerated FOLLOW-up: Come see me in the office in a couple of weeks to ensure everything is healing up perfectly. Stand Alone Forms: Anesthesia Discharge Jamey Bentlye (SHERMAN) Activity:: Activity as Tolerated Diet:: As Tolerated Discharge Orders Discharge Orders: Discharge Order (Routine); Ordered 11/16/24 Ordered By: Sukhdev Pappas
--- NOTE | 2024-11-16 12:10 | W.ANESPOSTOP ---
Postoperative Evaluation Date, Time and Location Date Performed: 11/16/24 Time Performed: 12:11 Patient Location: PACU Vital Signs Most Recent Imported Vital Signs: Most Recent Vital Signs Temp Pulse Resp BP Pulse Ox 36.5 C 45 L 20 141/53 H 95 11/16/24 12:00 11/16/24 12:01 11/16/24 12:01 11/16/24 12:01 11/16/24 12:01 Pain Score Most Recent Pain Score: Most Recent Pain Score Pain Level 0 11/16/24 12:00 Assessment Mental Status: Awake (Alert & Oriented to Patient Baseline) Airway and Respiratory Function: Patent airway with normal (patient baseline) respiratory exam Cardiovascular Function: Hemodynamically Stable Hydration Status: Adequately Hydrated Nausea & Vomiting: No Nausea or Vomiting Pain: Pt. Denies Any Pain Peripheral Nerve Block: Patient did not receive a nerve block Teaching Patient Teaching: Discussed Safe Use of Pain Medication Given Recent Anesthesia and Discussed Safe Use of Pain Medication Given Likely or Known EVARISTO
--- NOTE | 2024-11-16 12:23 | W.ANESPOSTOP ---
Postoperative Evaluation Date, Time and Location Date Performed: 11/16/24 Time Performed: 12:23 Patient Location: Day Surgery Unit Vital Signs Most Recent Imported Vital Signs: Most Recent Vital Signs Temp Pulse Resp BP Pulse Ox 35.9 C L 45 L 18 142/57 H 95 11/16/24 12:12 11/16/24 12:12 11/16/24 12:12 11/16/24 12:12 11/16/24 12:12 Most Recent Vital Signs Temp Pulse Resp BP Pulse Ox 36.5 C 45 L 20 141/53 H 95 11/16/24 12:00 11/16/24 12:01 11/16/24 12:01 11/16/24 12:01 11/16/24 12:01 Pain Score Most Recent Pain Score: Most Recent Pain Score Pain Level 0 11/16/24 12:12 Assessment Mental Status: Awake (Alert & Oriented to Patient Baseline) Airway and Respiratory Function: Patent airway with normal (patient baseline) respiratory exam Cardiovascular Function: Hemodynamically Stable Hydration Status: Adequately Hydrated Nausea & Vomiting: No Nausea or Vomiting Pain: Pt. Denies Any Pain Peripheral Nerve Block: Patient did not receive a nerve block
== END 2024-11-16 13:19 | disposition home or self-care (01) ==
PROVIDERS: Visit Provider Student in an Organized Health Care Education/Training Program
PROC: (CPT 49320; principal; 2024-11-16 07:30)
DX: T81.89XA Other complications of procedures, not elsewhere classified, initial encounter (principal); I89.8 Other specified noninfective disorders of lymphatic vessels and lymph nodes; C4A.9 Merkel cell carcinoma, unspecified; E11.9 Type 2 diabetes mellitus without complications; G47.33 Obstructive sleep apnea (adult) (pediatric); I87.2 Venous insufficiency (chronic) (peripheral); E78.5 Hyperlipidemia, unspecified; I10 Essential (primary) hypertension; M35.3 Polymyalgia rheumatica
CPT/HCPCS: 38305; 38790; J0131; J0665; J1100; J1596; J1885; J2250; J2371; J2405; J2704; J3010

== ENCOUNTER → 2024-11-30 14:32 | Outpatient (BNVA) | payer MEDICARE, SELFPAY | PROVIDERS: Visit Provider Student in an Organized Health Care Education/Training Program | DX: Z09 Encounter for follow-up examination after completed treatment for conditions other than malignant neoplasm (principal) | CPT/HCPCS: 99024 ==